=== PATIENT | male | born 2005 | race African-American/Black ===

== ENCOUNTER 2025-09-17 18:55 | Emergency (ER) | payer SELFPAY ==
[2025-09-17 19:16] VITALS: BP 159/46; PULSE 76; RESP 18; TEMP 37.1; O2SAT 100
[2025-09-17 20:39] LABS: Add Urine Microscopic? NO; Appearance Urine Clear (Clear); Glucose Urine UA Negative (Negative); Leukocyte Esterase Ur Negative LEU/UL (Negative); Nitrate Urine Negative (Negative); Specific Grav Ur 1.012 (1.001-1.035)
--- NOTE | 2025-09-17 21:24 | ED.MALEGU ---
HPI - Male Genitourinary General Chief complaint: Urogenital-Male Stated complaint: redness/itchy genitals Time Seen by Provider: 09/17/25 19:27 Source: patient Mode of arrival: ambulatory Limitations: no limitations History of Present Illness HPI Narrative: 20-year-old otherwise healthy here with the complaints of rash on his penis for past few days. Denies any urinary symptoms. No recent sexual intercourse. MD Complaint: other (rash) Onset (ago): week(s) (1) Duration: constant Location: penis Severity: mild Quality: other (itching) Relieving factors: none Review of Systems Review of Systems: All systems reviewed & are unremarkable except as noted in HPI and below Constitutional: Constitutional: Reports no additional constitutional complaints Eyes: Eyes: Reports no additional eye complaints ENT: Reports system reviewed and no additional complaints, except as documented Cardiovascular: Cardiovascular: Reports no additional cardiovascular complaints Respiratory: Respiratory: Reports no additional respiratory complaints Gastrointestinal: Gastrointestinal: Reports no additional gastrointestinal complaints Genitourinary: Genitourinary: Reports as per HPI Musculoskeletal: Musculoskeletal: Reports no additional musculoskeletal complaints Exam Narrative: GENERAL: Well-appearing, well-nourished, and in no acute distress. HEAD: Normocephalic, atraumatic. EYES: PERRLA and EOMI. ENT: Nares clear, no rhinorrhea or epistaxis. Mucous membranes moist. NECK: Supple. CHEST: Clear to auscultation. No respiratory distress. HEART: Regular rate and rhythm. No murmur heard. Normal peripheral pulses. EXTREMITIES: Normal range of motion. No edema. penis has erythematous rash , no ulcer SKIN: Warm, dry, no rash. NEURO: No focal deficits. Alert and oriented x3. PSYCH: Normal mood and affect. Course Course Emergency Course: informed him about his lab work . advised him to use the medication as prescribed. Vital Signs Vital signs: Vital Signs Temperature 37.1 C 09/17/25 19:16 Pulse Rate 76 09/17/25 19:16 Respiratory Rate 18 09/17/25 19:16 Blood Pressure 159/46 H 09/17/25 19:16 Pulse Oximetry 100 09/17/25 19:16 Oxygen Delivery Room Air 09/17/25 19:16 Temperature 37.1 C 09/17/25 19:16 Pulse Rate 76 09/17/25 19:16 Respiratory Rate 18 09/17/25 19:16 Blood Pressure 159/46 H 09/17/25 19:16 Pulse Oximetry 100 09/17/25 19:16 Oxygen Delivery Room Air 09/17/25 19:16 MDM - Male Genitourinary Lab Data Labs: Lab Results 09/17/25 Range/Units 20:33 Urine Color Yellow (Yellow) Urine Appearance Clear (Clear) Urine pH 7.0 (5.0-9.0) Ur Specific [place] 1.012 (1.001-1.035) Urine Protein Negative (Negative) mg/dL Urine Glucose (UA) Negative (Negative) mg/dL Urine Ketones Negative (Negative) mg/dL Ur Blood (Man) Negative (Negative) Urine Nitrate Negative (Negative) Urine Bilirubin Negative (Negative) Urine Urobilinogen 0.2 (<2.0) mg/dL Leukocyte Esterase Rfl Negative (Negative) COY/UL C. trachomatis (PCR) Pending N. gonorrhoeae (PCR) Pending T. vaginalis (PCR) Pending Discharge Plan Discharge Clinical Impression: Balanitis Patient Disposition: Home Condition: Stable Instructions: Geena (ED) Patient Language: Macedonian Prescriptions: New nystatin 100,000 unit/gram ointment 1 applic topical BID Qty: 30 0RF Follow-up/Referrals: PHYSICIAN,PHLEBOTOMY DIRECTOR [Primary Care Provider, Internal Medicine] Karel Elizabeth MD [Physician, Family Practice] Time of Disposition: 21:31
[2025-09-17 21:43] LABS: Trichomonas Vag PCR NOT DETECTED (NOT DETECTE)
[2025-09-17 22:36] VITALS: BP 150/88; PULSE 72; RESP 18; O2SAT 100
== END 2025-09-17 22:41 | disposition home or self-care (01) ==
PROVIDERS: Student in an Organized Health Care Education/Training Program; Emergency Provider Family Medicine
DX: N48.1 Balanitis (principal)
CPT/HCPCS: 81003; 87491; 87591; 87661; 99283